=== PATIENT | female | born 1945 | race Caucasian/White ===

== ENCOUNTER 2020-07-16 10:01 | Emergency (ER) | payer MEDICARE, SELFPAY ==
[2020-07-16 10:12] VITALS: BP 157/75; PULSE 96; RESP 20; TEMP 37.3; O2SAT 96
--- NOTE | 2020-07-16 10:16 | ED.GENADULT ---
HPI - General Adult General Chief complaint: Upper Respiratory Infection Stated complaint: Sinus Time Seen by Provider: 07/16/20 10:24 Source: patient Mode of arrival: ambulatory Limitations: no limitations History of Present Illness HPI narrative: 75-year-old female patient presents to the [facility] with complaints of sinus congestion and drainage that has worsened in the past 2 to 3 days. Patient states she started taking Claritin a couple of weeks ago which did improve her symptoms however she feels that her Claritin is not working any longer and states that she has worsening symptoms whenever she lays down which causes drainage to the back of her throat and causes her to cough. Patient states she usually does not have any issues when she is sitting up and throughout the day. Patient denies any fevers, body aches or chills. Denies any ear pain, sore throat, chest pain or shortness of breath. Denies any abdominal pain, nausea, vomiting or diarrhea. Related Data Home Medications Medication Instructions Recorded Confirmed polyethylene glycol 3350 17 17 gm PO DAILY 09/26/19 gram/dose oral powder cholecalciferol (vitamin D3) 125 125 mcg PO DAILY 04/10/20 mcg (5,000 unit) capsule Allergies Allergy/AdvReac Type Severity Reaction Status Date / Time codeine Allergy Mild nausea Verified 04/10/20 08:06 hydrocodone Allergy Mild nausea Verified 04/10/20 08:06 Review of Systems Review of Systems: Narrative: CONSTITUTIONAL: Denies fever, chills, or sweats. EYES: Denies visual changes, redness, or discharge. ENT: Positive clear rhinorrhea, congestion, denies sore throat, or otalgia. CARDIOVASCULAR: Denies chest pain, palpitations, or edema. RESPIRATORY: Denies cough or dyspnea. GASTROINTESTINAL: Denies abdominal pain, nausea, vomiting, or diarrhea. GENITOURINARY: Denies dysuria or hematuria. SKIN: Denies rash or itching. MUSCULOSKELETAL: Denies back pain, joint pain, or myalgia. NEUROLOGIC: Denies headache, numbness, or weakness. PSYCHIATRIC: Denies anxiety or depression. [facility] Past Medical History Medical History Age-related osteoporosis without current pathological fracture Essential (primary) hypertension Other hyperlipidemia Primary osteoarthritis of both knees Family History Family History Sibling Family history of malignant neoplasm of breast in first degree relative, Onset Age: 80 Other Family history of coronary artery disease Social History Social History Smoking status: Never smoker Alcohol intake: current Comments At the time of my signature I agree with nursing past medical history, surgical, social, and family history. There is no relevant family history pertinent to the presenting complaint. Exam Narrative: Exam Narrative: GENERAL: Well-appearing, well-nourished, and in no acute distress. HEAD: Normocephalic, atraumatic. EYES: PERRLA and EOMI. ENT: Nares with erythema and edema noted bilaterally, patent, clear rhinorrhea, no epistaxis. Mucous membranes moist. Posterior pharynx no erythema, tonsillectomy, exudates or lesions present. Bilateral TMs are clear with no erythema or foreign bodies to the canal. NECK: Supple. No lymphadenopathy CHEST: Clear to auscultation. No respiratory distress. HEART: Regular rate and rhythm. No murmur heard. Normal peripheral pulses. ABDOMEN: Soft, nontender, nondistended, normal active bowel sounds. EXTREMITIES: Normal range of motion. No edema. SKIN: Warm, dry, no rash. NEURO: No focal deficits. Alert and oriented x3. Course Vital Signs Vital signs: Vital Signs Temperature 37.3 C 07/16/20 10:12 Pulse Rate 96 07/16/20 10:12 Respiratory Rate 07/16/20 10:12 Blood Pressure 157/75 H 07/16/20 10:12 Pulse Oximetry 96 07/16/20 10:12 Temperature 37.3 C 07/16/20 10:12
== END 2020-07-16 10:35 | disposition home or self-care (01) ==
PROVIDERS: Emergency Provider Nurse Practitioner Family
DX: J00 Acute nasopharyngitis [common cold] (principal); J01.90 Acute sinusitis, unspecified; J30.2 Other seasonal allergic rhinitis; M81.0 Age-related osteoporosis without current pathological fracture; I10 Essential (primary) hypertension; M19.90 Unspecified osteoarthritis, unspecified site; E78.5 Hyperlipidemia, unspecified
CPT/HCPCS: 99213; G0463

== ENCOUNTER → 2020-08-07 17:31 | Outpatient (CLI) | payer MEDICARE, SELFPAY ==
--- NOTE | ~2020-08-07 | MM_ITS ---
EXAMINATION: MM screening martha BI w rajeev HISTORY: Screening mammogram TECHNIQUE: Craniocaudal and mediolateral oblique 3-D tomosynthesis images were obtained and synthetic 2-D images were generated. CAD analysis was submitted and interpreted. COMPARISON: 06/05/2019, 05/13/2018, 05/11/2017 bilateral digital screening mammogram examinations BREAST PARENCHYMAL COMPOSITION: The breasts are almost entirely fatty. FINDINGS: Minimal benign calcification is noted bilaterally. There is no evidence of suspicious mass, calcification, or architectural distortion to suggest malignancy in either breast. There has been no suspicious interval change. IMPRESSION: 1. No mammographic evidence of malignancy. 2. Recommend routine screening mammography in one year. BI-RADS Category 2: Benign finding(s). Reviewed, dictated and finalized at location A.
== END ==
PROVIDERS: PCP Nurse Practitioner Family; Visit Provider Nurse Practitioner
DX: Z12.31 Encounter for screening mammogram for malignant neoplasm of breast (principal)
CPT/HCPCS: 77063; 77067

== ENCOUNTER → 2021-08-11 07:17 | Outpatient (CLI) | payer MEDICARE, SELFPAY ==
--- NOTE | ~2021-08-11 | MM_ITS ---
EXAMINATION: MM screening martha BI w rajeev HISTORY: Screening mammogram TECHNIQUE: Craniocaudal and mediolateral oblique 3-D tomosynthesis images were obtained and synthetic 2-D images were generated. CAD analysis was submitted and interpreted. COMPARISON: 08/07/2020, 06/05/2019, 05/13/2018, 05/11/2017, 03/17/2016, 03/14/2015 bilateral digital scree mitzy mammogram examinations BREAST PARENCHYMAL COMPOSITION: The breasts are almost entirely fatty. FINDINGS: Approximately 7 mm circumscribed opacity is noted in the mid to upper inner left breast pos teriorly, present on previous radiographs dating back to 03/06/2015, most likely a benign intramammary lymph node. Occasional benign calcifications. There is no evidence of suspicious mass, calcification, or architec tural distortion to suggest malignancy in either breast. There has been no suspicious interval change . IMPRESSION: 1. No mammographic evidence of malignancy. 2. Recommend routine screening mammography in one year. BI-RADS Category 2: Benign finding(s). Reviewed, dictated and finalized at location A.
== END ==
PROVIDERS: PCP Family Medicine; Visit Provider Family Medicine
DX: Z12.31 Encounter for screening mammogram for malignant neoplasm of breast (principal)
CPT/HCPCS: 77063; 77067

== ENCOUNTER → 2021-10-29 10:45 | Outpatient (CLI) | payer MEDICARE, SELFPAY ==
--- NOTE | ~2021-10-29 | DEXA_ITS ---
Bone Density Report Name: AUSTIN FARAH Age: 76 Sex: Female Ethnicity: White Date of : 1945 Indication: osteopenia; height loss; prior fracture; postmenopausal Referring Provider: Gail Elias Study: Bone densitometry was performed. Exam Date: October 29, 2021 Accession number: [id number] Bone Density: Region BMD T-score Z-score Classification AP Spine (L1-L4) 0.972 -0.7 1.9 Normal Femoral Neck (Left) 0.771 -0.7 1.5 Normal Total Hip (Left) 1.021 0.6 2.6 Normal Femoral Neck (Right) 0.777 -0.6 1.6 Normal Total Hip (Right) 0.983 0.3 2.3 Normal Total Hip Mean 1.002 0.5 2.5 Normal World Health Organization criteria for BMD impression classify patients as: Normal (T-score at or above -1.0), Osteopenia (T-score between -1.0 and -2.5), or Osteoporosis (T-score at or below -2.5). 10-year Fracture Risk: FRAX not reported because: All T-scores for Spine Total, Hip Total, Femoral Neck at or above -1.0 Previous Exams: Region Exam Age BMD T-score BMD Change BMD Change Date g/cm2 vs Baseline vs Previous AP Spine(L1-L4) 10/29/2021 76 0.972 -0.7 0.186* 0.084* 02/23/2018 72 0.888 -1.4 0.102* 0.020 03/14/2015 69 0.868 -1.6 0.082 0.034* 08/29/2012 67 0.834 -1.9 0.048 0.020 08/30/2009 64 0.814 -2.1 0.028 0.028 02/08/2006 60 0.786 -2.4 Total Hip(Left) 10/29/2021 76 1.021 0.6 0.000 -0.022 02/23/2018 72 1.043 0.8 0.022 0.016 03/14/2015 69 1.027 0.7 0.005 0.069* 08/29/2012 67 0.958 0.1 -0.064 0.072* 08/30/2009 64 0.886 -0.5 -0.135 -0.135 02/08/2006 60 1.021 0.7 Total Hip(Right) 10/29/2021 76 0.983 0.3 -0.060* -0.007 02/23/2018 72 0.990 0.4 -0.053* 0.015 03/14/2015 69 0.975 0.3 -0.068 0.040* 08/29/2012 67 0.936 -0.1 -0.108 0.064* 08/30/2009 64 0.872 -0.6 -0.172 -0.172 02/08/2006 60 1.043 0.8 *Denotes significance at 95% confidence level, LSC for AP Spine = 0.022 g/cm2, LSC for Total Hip = 0.027 g/cm2 Clinical Information Provided by Patient: Has had a low trauma fracture Has used the following medications: Vitamin D, Calcium, MTV Patient maximum height was 67 Menopause Age: 43 No regular weight bearing exercise Drinks caffeinated beverages
== END ==
PROVIDERS: PCP Family Medicine; Visit Provider Family Medicine
DX: Z78.0 Asymptomatic menopausal state (principal)
CPT/HCPCS: 77080

== ENCOUNTER 2022-10-21 10:33 | Outpatient (CLI) | payer MEDICARE, SELFPAY ==
[2022-10-21 18:41] LABS: Alanine Aminotransferase 22 U/L (6-35); Albumin Level 4.5 g/dL (3.5-5.1); Alkaline Phosphatase 87 U/L (38-126); Anion Gap 6 mmol/L (8-16); Aspartate Amino Transferase 25 U/L (14-36); Bilirubin,Total 0.5 mg/dL (0.2-1.3); Blood Urea Nitrogen 15 mg/dL (7-17); Calcium 9.7 mg/dL (8.4-10.2); Carbon Dioxide 32 mmol/L (22-30); Chloride 99 mmol/L (98-107); Cholesterol 221 mg/dL (0-200); Estimated Glomerular Filt Rate > 60; Glucose 91 mg/dL (65-110); HDL Direct 80 mg/dL; Potassium 4.2 mmol/L (3.4-5.0); Sodium 137 mmol/L (137-145); Triglycerides 128 mg/dL (<150)
[2022-10-21 18:58] LABS: LDL Cholesterol Direct 98 mg/dL
== END 2022-10-21 10:34 | disposition home or self-care (01) ==
LOC: ANHGOSHLAB 10:35
PROVIDERS: PCP Family Medicine; Visit Provider Family Medicine
DX: E78.5 Hyperlipidemia, unspecified (principal); I10 Essential (primary) hypertension
CPT/HCPCS: 36415; 80053; 80061

== ENCOUNTER → 2022-10-26 09:25 | Outpatient (CLI) | payer MEDICARE, SELFPAY ==
--- NOTE | ~2022-10-26 | MM_ITS ---
EXAMINATION: MM screening martha BI w rajeev HISTORY: Screening mammogram TECHNIQUE: Craniocaudal and mediolateral oblique 3-D tomosynthesis images were obtained and synthetic 2-D images were generated. CAD analysis was submitted and interpreted. COMPARISON: 08/11/2021, 08/07/2020, 06/05/2019 bilateral screening mammogram examinations BREAST PARENCHYMAL COMPOSITION: The breasts are almost entirely fatty. FINDINGS: There is no evidence of suspicious mass, calcification, or architectural distortion to sugg est malignancy in either breast. There has been no suspicious interval change. IMPRESSION: 1. No mammographic evidence of malignancy. 2. Recommend routine screening mammography in one year. BI-RADS Category 1: Negative Reviewed, dictated and finalized at location A. ENTARY EDUCATION TEACHER
== END ==
PROVIDERS: PCP Family Medicine; Visit Provider Family Medicine
DX: Z12.31 Encounter for screening mammogram for malignant neoplasm of breast (principal)
CPT/HCPCS: 77063; 77067

== ENCOUNTER 2022-11-05 07:12 | Outpatient (CLI) | payer MEDICARE, SELFPAY ==
--- NOTE | 2022-11-05 07:20 | ECHO_ITS ---
Patient Info Name: Arabella Rucker Age: 77 years : 1945 Gender: Female Ht: 67 in Wt: 229 lbs BSA: 2.26 m2 HR: 75 bpm BP: 156 / 98 mmHg Technical Quality: Fair Exam Date: 11/05/2022 7:31 AM Exam Location: [facility] Pulmonary Patient Status: Outpatient Admit Date: 11/05/2022 Staff Ordering Physician: Gail Elias MD Photocomposing Machine Operator: Africa Sousa RDCS Attending Provider: Gail Elias MD Exam Type: CA echo doppler color flow Study Info Indications R01.1 - Cardiac murmur, unspecified Complete two-dimensional, color flow and Doppler transthoracic echocardiogram is performed. Summary 1. Complete two-dimensional, color flow and Doppler transthoracic echocardiogram is performed. 2. Left ventricular chamber dimension is normal. 3. Left ventricular systolic function is normal, estimated at 65-70%. 4. There is mildly increased left ventricular wall thickness. 5. The left ventricular diastolic function is grade I diastolic dysfunction. 6. E/e' 11 is mildly elevated. 7. Global longitudinal strain is abnormal at -13.6%. 8. Left atrial chamber dimension is mildly enlarged. 9. There is mild aortic valve sclerosis. 10. No pulmonary hypertension, estimated pulmonary arterial systolic pressure is 24 mmHg. Left Ventricle E/e' 11 is mildly elevated. Global longitudinal strain is abnormal at -13.6%. Left ventricular chamber dimension is normal. Left ventricular systolic function is normal, estimated at 65-70%. There is mildly increased left ventricular wall thickness. The left ventricular diastolic function is grade I diastolic dysfunction. Right Ventricle Right ventricular chamber dimension is normal. Right ventricular systolic function is normal. Left Atria Left atrial chamber dimension is mildly enlarged. Right Atria Right atrial chamber dimension is normal. Aortic Valve The aortic valve is trileaflet. There is mild aortic valve sclerosis. There is no aortic valve stenosis. There is no aortic valve regurgitation. Pulmonic Valve There is no pulmonic regurgitation. Mitral Valve There is no mitral valve stenosis. There is no mitral valve regurgitation. Tricuspid Valve There is no tricuspid valve regurgitation. No pulmonary hypertension, estimated pulmonary arterial systolic pressure is 24 mmHg. Pericardium/Pleural There is no pericardial effusion. Inferior Vena Cava Normal inferior vena cava with >50% collapse upon inspiration consistent with normal right atrial pressure, 5 mmHg. Aorta The aortic root size at the sinus of Valsalva is normal. Left Ventricular Outflow Tract Name Value Normal LVOT 2D LVOT Diameter 2.0 cm LVOT Doppler LVOT Peak Gradient 6 mmHg LVOT Mean Gradient 3 mmHg LVOT VTI 24 cm LVOT VTI/AV VTI Ratio 1.0 LVOT Stroke Volume 73 ml LVOT CO 5.7 l/min LVOT CI 2.5 l/min/m2 Pulmonic Valve
== END 2022-11-05 07:13 | disposition home or self-care (01) ==
PROVIDERS: PCP Family Medicine; Visit Provider Family Medicine
DX: R01.1 Cardiac murmur, unspecified (principal); I10 Essential (primary) hypertension
CPT/HCPCS: 93306

== ENCOUNTER 2023-04-27 07:59 | Outpatient (CLI) | payer MEDICARE, SELFPAY ==
[2023-04-27 19:38] LABS: Basophils Percent Auto 1.1 % (0.2-1.2); Eosinophils Absolute Auto 0.2 K/mm3 (0-0.3); Eosinophils Percent Auto 4.9 % (0-4.4); Hematocrit 48.6 % (37.0-47.0); Hemoglobin 15.3 g/dL (12.0-15.0); Immature Granulocyte Absolute 0.02 K/mm3 (0.00-0.031); Immature Granulocyte Percent A 0.6 % (0-0.5); Lymphocytes Absolute Auto 0.99 K/mm3 (0.9-3.2); Lymphocytes Percent Auto 28.3 % (18.3-44.2); Mean Corpuscular HGB Conc 31.5 g/dl (32-36); Mean Corpuscular Hemoglobin 30.2 pg (26-34); Mean Platelet Volume 12.1 fl (7.4-10.4); Monocytes Absolute Auto 0.5 K/mm3 (0.1-0.6); Monocytes Percent Auto 14.6 % (2.6-8.5); Neutrophils Absolute Auto 1.8 K/mm3 (1.3-6.7); Neutrophils Percent Auto 50.5 % (45.5-73.1); Platelet Count Result 176 k/mm3 (150-375); Red Blood Count 5.06 M/mm3 (4.2-5.4); Red Cell Distribution Width 13.9 % (11.5-14.5); White Blood Count 3.5 K/mm3 (4.5-10.0)
[2023-04-27 20:34] LABS: Alanine Aminotransferase 25 U/L (6-35); Albumin Level 4.3 g/dL (3.5-5.1); Alkaline Phosphatase 71 U/L (38-126); Anion Gap 2 mmol/L (8-16); Aspartate Amino Transferase 30 U/L (14-36); Bilirubin,Total 0.7 mg/dL (0.2-1.3); Blood Urea Nitrogen 13 mg/dL (7-17); Calcium 9.4 mg/dL (8.4-10.2); Carbon Dioxide 34 mmol/L (22-30); Chloride 103 mmol/L (98-107); Cholesterol 185 mg/dL (0-200); Estimated Glomerular Filt Rate > 60; Glucose 84 mg/dL (65-110); HDL Direct 81 mg/dL; Potassium 4.8 mmol/L (3.4-5.0); Sodium 139 mmol/L (137-145); Triglycerides 95 mg/dL (<150)
[2023-04-27 20:45] LABS: LDL Cholesterol Direct 77 mg/dL
[2023-04-27 20:47] LABS: Vitamin D 25 Hydroxy 86.4 ng/mL
== END 2023-04-27 08:00 | disposition home or self-care (01) ==
LOC: ANHGOSHLAB 08:00
PROVIDERS: PCP Family Medicine; Visit Provider Family Medicine
DX: Z00.00 Encounter for general adult medical examination without abnormal findings (principal); E55.9 Vitamin D deficiency, unspecified; I10 Essential (primary) hypertension; E78.5 Hyperlipidemia, unspecified; E53.8 Deficiency of other specified B group vitamins
CPT/HCPCS: 36415; 80053; 80061; 82306; 82607; 84443; 85025

== ENCOUNTER 2023-08-21 12:45 | Emergency (ER) | payer MEDICARE, SELFPAY ==
--- NOTE | ~2023-08-21 | XR_ITS ---
EXAMINATION: XR shoulder RT min 2V DATE: 08/21/2023 13:47 INDICATION: Proximal lateral right humeral pain post injury 2 weeks prior TECHNIQUE: AP internally and externally rotated, AP oblique externally rotated and transscapular Y vi ews of the right shoulder were obtained. COMPARISON: None FINDINGS: Normal alignment. Subtle zigzag linear lucency extending across the scapular spine at the level of th e coracoid process consistent with nondisplaced fracture. Additional likely old fractures of the ante rior right fifth and sixth ribs. Moderate size marginal osteophytes along the posterior inferior dee oid with relatively preserved joint space consistent with mild osteoarthritis. There is mild widening of the right acromioclavicular joint space with smoothly tapered contour to the lateral head of the right clavicle which suggests sequela prior distal clavicle resection. Soft tissues are unremarkable . Visualized portion of the lungs are clear. IMPRESSION: 1. Recent-appearing nondisplaced fracture across the scapular spine. 2. Likely old fracture of the anterior right fifth and sixth ribs. 3. Widening of the right acromioclavicular joint with contour of the lateral head of the clavicle sug gesting small likely related to prior acromioplasty than acromioclavicular joint separation but would correlate with clinical history. 4. Mild right glenohumeral osteoarthritis. Reviewed, dictated and finalized at location A. IMPRESSION: 1. Recent-appearing nondisplaced fracture across the scapular spine. 2. Likely old fracture of the anterior right fifth and sixth ribs. 3. Widening of the right acromioclavicular joint with contour of the lateral he ad of the clavicle suggesting small likely related to prior acromioplasty than acromioclavicular joint separation but would correlate with clinical history. 4. Mild right glenohumeral osteoarthritis.
[2023-08-21 13:29] VITALS: BP 141/73; PULSE 83; RESP 20; TEMP 37.1; O2SAT 98
--- NOTE | 2023-08-21 13:54 | ED.UPPEXIN ---
HPI - Extremity Injury (Upper) General Chief Complaint: Extremity Injury, Upper Stated Complaint: right shoulder pain Time Seen by Provider: 08/21/23 13:30 Source: patient Mode of arrival: ambulatory Limitations: no limitations History of Present Illness HPI narrative: Arabella is an 78-year-old female patient presenting to the clinic today with complaints of right shoulder pain x2 weeks. She reports she was on a plane coming home from [facility] when some luggage fell and landed on her right shoulder. She initially had pain to the posterior shoulder/right clavicle however now the pain is over the humerus and to the anterior shoulder. She is unable to lift her arm above her head without severe pain. Has very poor range of motion due to pain. She has not been evaluated for shoulder pain since the injury. Related Data Home Medications Medication Instructions Recorded Confirmed polyethylene glycol 3350 17 17 gm PO DAILY 09/26/19 08/21/23 gram/dose oral powder (Miralax) cholecalciferol (vitamin D3) 50 50 mcg PO DAILY 04/13/22 08/21/23 mcg (2,000 unit) tablet fluticasone propionate 50 1 spray intranasal DAILY no 04/26/23 08/21/23 mcg/actuation nasal spray,suspension (Flonase Allergy Relief) Allergies Allergy/AdvReac Type Severity Reaction Status Date / Time codeine Allergy Mild nausea Verified 08/21/23 13:24 hydrocodone Allergy Mild nausea Verified 08/21/23 13:24 Review of Systems Review of Systems: Pertinent positives per HPI. Patient denies any fever, chills, rash, headache, visual changes, dizziness, cough, shortness of breath, chest pain, palpitations, nausea, vomiting, diarrhea, constipation, abdominal pain, or any urinary issues. [facility] Past Medical History Medical History Age-related osteoporosis without current pathological fracture Chronic low back pain Essential (primary) hypertension Muscle cramping Osteopenia Other hyperlipidemia Primary osteoarthritis of both knees Vitamin D deficiency Surgical History Surgical History History of surgery on left wrist (~05/30/21) Left ulna and distal radius fx, screws placed. [facility] History of surgery on upper extremity 1994 - ORIF of left humerus fracture Family History Family History Sibling Family history of malignant neoplasm of breast in first degree relative, Onset Age: 80 Sibling Leukemia Other Family history of coronary artery disease Social History Social History Smoking status: Never smoker Alcohol intake: current Alcohol use details: rarely Substance use: never Substance use type: does not use Lack of Transportation: No Lack of Food: Never True Current Housing: I Have Housing Concerned About Future Housing: No Difficulty Paying Gas/Electric Bills: No Difficulty Paying for Meds: No Currently Unemployed: No Education: High School Diploma/GED Difficulty w/ Childcare or Family Care: No Living arrangements: alone Occupation/Education: retired Gender identity (if verbalized by the patient): Female Agree to blood products: Yes Comments At the time of my signature, I reviewed and agree with the nursing past medical, surgical, social, and family history. There is no relevant family history pertinent to the patient complaint. Exam Narrative: General: Well-developed, obese, in no apparent distress Head: Normocephalic, atraumatic. Cardio: Regular rate and rhythm, s1 and s2 normal, no murmur appreciated. Resp: Clear to auscultation bilaterally, no rhonchi, rales, wheezing or rubs. Musculoskeletal: No deformity, no swelling or bruising noted, tender to palpation over the anterior and posterior shoulder joint with pain radiating into the humerus, unable to raise a
== END 2023-08-21 14:48 | disposition home or self-care (01) ==
PROVIDERS: Emergency Provider Nurse Practitioner Family; PCP Family Medicine
DX: S43.101A Unspecified dislocation of right acromioclavicular joint, initial encounter (principal); S42.101A Fracture of unspecified part of scapula, right shoulder, initial encounter for closed fracture; I10 Essential (primary) hypertension; E78.5 Hyperlipidemia, unspecified; W20.8XXA Other cause of strike by thrown, projected or falling object, initial encounter; Y92.813 Airplane as the place of occurrence of the external cause
CPT/HCPCS: 73030; 99214; A4565; G0463

== ENCOUNTER → 2023-10-28 07:03 | Outpatient (CLI) | payer MEDICARE, SELFPAY ==
--- NOTE | ~2023-10-28 | MM_ITS ---
EXAMINATION: MM screening martha BI w rajeev HISTORY: Screening mammogram, family history of breast cancer in her sister. TECHNIQUE: Craniocaudal and mediolateral oblique 3-D tomosynthesis images were obtained and synthetic 2-D images were generated. CAD analysis was submitted and interpreted. COMPARISON: 11/05/2022, 08/11/2021, 08/07/2020 BREAST PARENCHYMAL COMPOSITION: The breasts are almost entirely fatty. FINDINGS: An intramammary lymph node is noted in the upper inner quadrant of the left breast. No susp icious mass, calcification, or architectural distortion are identified in either breast to suggest ma lignancy. There has been no suspicious interval change. IMPRESSION: 1. No mammographic evidence of malignancy. 2. Recommend routine screening mammography while the patient remains in good health. BI-RADS Category 2: Benign finding(s). Reviewed, dictated and finalized at location A. ER INSPECTOR IMPRESSION: 1. No mammographic evidence of malignancy. 2. Recommend routine screening mammography while the patient remains in good he alth. BI-RADS Category 2: Benign finding(s).
== END ==
PROVIDERS: PCP Family Medicine; Visit Provider Family Medicine
DX: Z12.31 Encounter for screening mammogram for malignant neoplasm of breast (principal)
CPT/HCPCS: 77063; 77067

== ENCOUNTER 2024-01-17 01:46 | Day surgery (SDC) | payer MEDICARE, SELFPAY ==
[2024-01-07 10:30] VITALS: BMI 36.6
--- NOTE | 2024-01-14 09:57 | SUR.PREOP ---
Patient called regarding upcoming procedure. Reviewed preop instructions, appointment times, and procedure prep.
[2024-01-17 08:41] VITALS: BP 180/80; PULSE 83; RESP 16; TEMP 36.5; O2SAT 95
[2024-01-17] MEDS: LACTATED RINGERS 1,000 ML 150 ML IV CONT (08:49)
--- NOTE | 2024-01-17 09:30 | PM.HPGS ---
History of Present Illness History of Present Illness Consent: Risks, benefits, and alternatives have been discussed and questions answered. Patient agrees to proceed with procedure. Chief complaint: neoplasm screening Narrative: Arabella Rucker is a 78 year old female here for screening colonoscopy, last one 10 years ago Review of Systems Review of Systems: All systems reviewed & are unremarkable except as noted in HPI and below PMFSH Past Medical History Medical History (Updated 01/17/24 @ 09:31 by Luis Bueno MD) Age-related osteoporosis without current pathological fracture Chronic low back pain Colon cancer screening Essential (primary) hypertension Muscle cramping Osteopenia Other hyperlipidemia Primary osteoarthritis of both knees Vitamin D deficiency Surgical History Surgical History History of surgery on left wrist (~05/30/21) Left ulna and distal radius fx, screws placed. [facility] History of surgery on upper extremity 1994 - ORIF of left humerus fracture Family History Family History Sibling Family history of malignant neoplasm of breast in first degree relative, Onset Age: 80 Sibling Leukemia Other Family history of coronary artery disease Social History Social History Smoking status: Never smoker Alcohol intake: never Alcohol use details: rarely Substance use: never Substance use type: does not use Lack of Transportation: No Lack of Food: Never True Current Housing: I Have Housing Concerned About Future Housing: No Difficulty Paying Gas/Electric Bills: No Difficulty Paying for Meds: No Currently Unemployed: No Education: High School Diploma/GED Difficulty w/ Childcare or Family Care: No Living arrangements: alone Occupation/Education: retired Gender identity (if verbalized by the patient): Female Spiritual care concerns: No Agree to blood products: Yes Meds Home Medications and Allergies Home Medications Medication Instructions Recorded Confirmed Type polyethylene glycol 3350 17 17 gm PO DAILY 09/26/19 01/07/24 History gram/dose oral powder (Miralax) calcium carbonate 500 mg calcium 500 mg PO DAILY #90 tabs 10/23/19 01/07/24 Rx (1,250 mg) chewable tablet vitamin B complex (B 1 tablet PO DAILY #90 tabs 10/23/19 01/07/24 Rx Complex-Vitamin B12 tablet) cyclobenzaprine 10 mg tablet 10 mg PO QHS PRN muscle spasm #90 03/26/22 01/07/24 Rx tabs cholecalciferol (vitamin D3) 50 50 mcg PO DAILY 04/13/22 01/07/24 History mcg (2,000 unit) tablet losartan 50 mg tablet 50 mg PO DAILY #90 tabs 01/29/23 01/07/24 Rx meloxicam 15 mg tablet 15 mg PO DAILY #90 tabs 10/26/23 01/07/24 Rx amlodipine 10 mg tablet 10 mg PO DAILY #90 tabs 11/11/23 01/07/24 Rx fluticasone propionate 50 1 spray intranasal DAILY PRN no 11/11/23 01/07/24 History mcg/actuation nasal spray,suspension (Flonase Allergy Relief) rosuvastatin 10 mg tablet (Crestor) 10 mg PO QHS 11/11/23 01/07/24 History Allergies Allergy/AdvReac Type Severity Reaction Status Date / Time codeine Allergy Mild nausea Verified 01/17/24 08:40 hydrocodone Allergy Mild nausea Verified 01/17/24 08:40 Vital Signs Vital Signs - 24 hr 01/17/24 08:41 Temperature 97.7 F Pulse Rate 83 Respiratory Rate 16 Blood Pressure 180/80 H Pulse Oximetry 95 Oxygen Delivery Room Air Exam Const: General: comfortable and no acute distress HENMT: Face/Nose/Sinus: Normal nares present Eyes: General: appearance normal, both eyes and all related structures Neck: Neck: no JVD Resp: Auscultation: clear to auscultation bilaterally Cardio: Rate: regular rate Rhythm: regular rhythm GI: Inspection: non-distended GI Palp: Yes Soft to palpation Skin: General skin exam: normal color Neuro:
--- NOTE | 2024-01-17 09:32 | WPDANESEPPF ---
Anes - Initial Pre Proc Eval Procedure: Operation Date: 01/17/24 10:00 Proposed Procedures p Screening Colonoscopy - Luis Bueno MD Date/Time: 01/17/24 09:32 Surgeon: Luis Bueno MD Pre Op Diagnosis: neoplasm screening Patient Data Age: 78 Gender: F Height: 1.7 m Weight: 103.2 kg Last Vital Signs Temp 97.7 F 01/17/24 08:41 Pulse 83 01/17/24 08:41 Resp 16 01/17/24 08:41 BP 180/80 H 01/17/24 08:41 Pulse Ox 95 01/17/24 08:41 O2 Del Method Room Air 01/17/24 08:41 Allergies Allergy/AdvReac Type Severity Reaction Status Date / Time codeine Allergy Mild nausea Verified 01/17/24 08:40 hydrocodone Allergy Mild nausea Verified 01/17/24 08:40 Home Medications Medication Instructions Recorded Confirmed Type polyethylene glycol 3350 17 17 gm PO DAILY 09/26/19 01/07/24 History gram/dose oral powder (Miralax) calcium carbonate 500 mg calcium 500 mg PO DAILY #90 tabs 10/23/19 01/07/24 Rx (1,250 mg) chewable tablet vitamin B complex (B 1 tablet PO DAILY #90 tabs 10/23/19 01/07/24 Rx Complex-Vitamin B12 tablet) cyclobenzaprine 10 mg tablet 10 mg PO QHS PRN muscle spasm #90 03/26/22 01/07/24 Rx tabs cholecalciferol (vitamin D3) 50 50 mcg PO DAILY 04/13/22 01/07/24 History mcg (2,000 unit) tablet losartan 50 mg tablet 50 mg PO DAILY #90 tabs 01/29/23 01/07/24 Rx meloxicam 15 mg tablet 15 mg PO DAILY #90 tabs 10/26/23 01/07/24 Rx amlodipine 10 mg tablet 10 mg PO DAILY #90 tabs 11/11/23 01/07/24 Rx fluticasone propionate 50 1 spray intranasal DAILY PRN no 11/11/23 01/07/24 History mcg/actuation nasal spray,suspension (Flonase Allergy Relief) rosuvastatin 10 mg tablet (Crestor) 10 mg PO QHS 11/11/23 01/07/24 History Patient hx anesthesia problems: none Family hx anesthesia problems: none Results Review: All pre-operative results and documents have been reviewed as part of the pre-operative evaluation. [facility] Past Medical History Medical History (Updated 01/17/24 @ 09:31 by Luis Bueno MD) Age-related osteoporosis without current pathological fracture Chronic low back pain Colon cancer screening Essential (primary) hypertension Muscle cramping Osteopenia Other hyperlipidemia Primary osteoarthritis of both knees Vitamin D deficiency Surgical History Surgical History History of surgery on left wrist (~05/30/21) Left ulna and distal radius fx, screws placed. [facility] History of surgery on upper extremity 1994 - ORIF of left humerus fracture Family History Family History Sibling Family history of malignant neoplasm of breast in first degree relative, Onset Age: 80 Sibling Leukemia Other Family history of coronary artery disease Social History Social History Smoking status: Never smoker Alcohol intake: never Alcohol use details: rarely Substance use: never Substance use type: does not use Lack of Transportation: No Lack of Food: Never True Current Housing: I Have Housing Concerned About Future Housing: No Difficulty Paying Gas/Electric Bills: No Difficulty Paying for Meds: No Currently Unemployed: No Education: High School Diploma/GED Difficulty w/ Childcare or Family Care: No Living arrangements: alone Occupation/Education: retired Gender identity (if verbalized by the patient): Female Spiritual care concerns: No Agree to blood products: Yes Anes - Eval Final PreProcedure Day of Procedure 01/17/24 09:32 Patient weight: obese Heart: regular rate and rhythm Lungs: clear to auscultation Airway: Mallampati scale class III Neurological: alert and oriented Last oral intake: >/= 8 hours ASA classification: III Emergent: no Anesthetic plan: proceed Anesthesia type and monitoring:
[2024-01-17 09:57] VITALS: BP 142/86; PULSE 78; RESP 28; O2SAT 95
[2024-01-17 10:07] VITALS: BP 140/83; PULSE 76; RESP 26; O2SAT 96
[2024-01-17 10:17] VITALS: BP 144/87; PULSE 70; RESP 19; O2SAT 95
== END 2024-01-17 10:22 | disposition home or self-care (01) ==
PROVIDERS: PCP Family Medicine; Visit Provider Internal Medicine Gastroenterology
PROC: 0DJD8ZZ Inspection of Lower Intestinal Tract, Via Natural or Artificial Opening Endoscopic (ICD-10-PCS; CPT 45378; principal; 2024-01-17 10:00)
DX: Z12.11 Encounter for screening for malignant neoplasm of colon (principal); K64.8 Other hemorrhoids; I10 Essential (primary) hypertension; E55.9 Vitamin D deficiency, unspecified; E78.49 Other hyperlipidemia; G89.29 Other chronic pain; M54.50 Low back pain, unspecified; E66.9 Obesity, unspecified; Z68.35 Body mass index [BMI] 35.0-35.9, adult; M85.88 Other specified disorders of bone density and structure, other site; Z98.890 Other specified postprocedural states; Z80.3 Family history of malignant neoplasm of breast; Z82.49 Family history of ischemic heart disease and other diseases of the circulatory system
CPT/HCPCS: G0105; J2001; J2704; J7120

== ENCOUNTER 2024-07-13 08:16 | Outpatient (CLI) | payer MEDICARE, SELFPAY ==
[2024-07-13 14:51] LABS: Basophils Absolute Auto 0.1 K/mm3 (0.0-0.1); Basophils Percent Auto 1.6 % (0.2-1.2); Eosinophils Absolute Auto 0.4 K/mm3 (0-0.3); Eosinophils Percent Auto 8.7 % (0-4.4); Hematocrit 45.1 % (37.0-47.0); Hemoglobin 14.3 g/dL (12.0-15.0); Immature Granulocyte Absolute 0.01 K/mm3 (0.00-0.031); Immature Granulocyte Percent A 0.2 % (0-0.5); Lymphocytes Absolute Auto 1.21 K/mm3 (0.9-3.2); Lymphocytes Percent Auto 28.5 % (18.3-44.2); Mean Corpuscular HGB Conc 31.7 g/dl (32-36); Mean Corpuscular Hemoglobin 31.1 pg (26-34); Mean Platelet Volume 12.6 fl (7.4-10.4); Monocytes Absolute Auto 0.6 K/mm3 (0.1-0.6); Monocytes Percent Auto 13.9 % (2.6-8.5); Neutrophils Percent Auto 47.1 % (45.5-73.1); Platelet Count Result 199 k/mm3 (150-375); Red Cell Distribution Width 14.8 % (11.5-14.5); White Blood Count 4.3 K/mm3 (4.5-10.0)
[2024-07-13 15:21] LABS: Alanine Aminotransferase 18 U/L (6-35); Albumin Level 4.3 g/dL (3.5-5.1); Alkaline Phosphatase 71 U/L (38-126); Anion Gap 6 mmol/L (4-12); Aspartate Amino Transferase 94 U/L (14-36); Bilirubin,Total 0.6 mg/dL (0.2-1.3); Blood Urea Nitrogen 16 mg/dL (7-17); Calcium 9.3 mg/dL (8.4-10.2); Carbon Dioxide 30 mmol/L (22-30); Chloride 102 mmol/L (98-107); Cholesterol 156 mg/dL (0-200); Estimated Glomerular Filt Rate > 60; Glucose 73 mg/dL (65-110); HDL Direct 67 mg/dL; Potassium 4.5 mmol/L (3.4-5.0); Sodium 138 mmol/L (137-145); Triglycerides 115 mg/dL (<150)
[2024-07-13 15:32] LABS: LDL Cholesterol Direct 65 mg/dL
[2024-07-13 18:49] LABS: Vitamin D 25 Hydroxy 67.4 ng/mL
== END 2024-07-13 08:17 | disposition home or self-care (01) ==
LOC: ANHGOSHLAB 08:17
PROVIDERS: PCP Family Medicine; Visit Provider Family Medicine
DX: E78.5 Hyperlipidemia, unspecified (principal); I10 Essential (primary) hypertension; R73.9 Hyperglycemia, unspecified; M85.88 Other specified disorders of bone density and structure, other site; E53.8 Deficiency of other specified B group vitamins; E55.9 Vitamin D deficiency, unspecified
CPT/HCPCS: 36415; 80053; 80061; 82306; 82607; 83036; 84443; 85025

== ENCOUNTER 2024-10-30 07:05 | Outpatient (CLI) | payer MEDICARE, SELFPAY ==
--- NOTE | ~2024-10-30 | MM_ITS ---
EXAMINATION: MM screening martha BI w rajeev HISTORY: Screening mammogram, family history of breast cancer in her sister. TECHNIQUE: Craniocaudal and mediolateral oblique 3-D tomosynthesis images were obtained and synthetic 2-D images were generated. CAD analysis was submitted and interpreted. COMPARISON: 10/28/2023, 10/26/2022, 08/11/2021 BREAST PARENCHYMAL COMPOSITION:Not Dense. The breasts are almost entirely fatty FINDINGS: Stable left breast mass. No suspicious mass, calcification, or architectural distortion are identified in either breast to suggest malignancy. There has been no suspicious interval change. IMPRESSION: No mammographic evidence of malignancy. Recommend routine screening mammography in one year. BI-RADS Category 2: Benign finding(s). Reviewed, dictated and finalized at [facility]. [employer]
== END 2024-10-30 07:06 | disposition home or self-care (01) ==
PROVIDERS: PCP Family Medicine; Visit Provider Family Medicine
DX: Z12.31 Encounter for screening mammogram for malignant neoplasm of breast (principal)
CPT/HCPCS: 77063; 77067

== ENCOUNTER 2025-01-15 11:52 | Outpatient (CLI) | payer MEDICARE, SELFPAY ==
--- OUTSIDE RECORDS SUMMARY | 2025-01-15 13:15 | XMS_ITS | Data Portability ---
Author Organization [place] - [facility] [employer], Main Office Address [address] [place] [address] Care Team Providers Care Counselor Manager Name Role Phone ALYSHA SALAZAR Primary Care Provider ALYSHA SALAZAR Referring Provider [phone] Assessment Encounter Date Assessment Date Assessment LastModified by Organization Details LastModified Time 03/26/2023 03/26/2023 HPI: Patient returns. She is here for cortisone injections into both her knees. She remains on meloxicam 15 mg daily. She gets about 2 and half months good relief from the injections. She has gained a little weight since we saw her last and she knows this. She is trying to her weight down which she knows will help with her symptoms. She wished to have additional injections today. Physical exam: 77-year-old female very alert pleasant. She walks with a cane. Has a mild valgus alignment to the right knee normal alignment in left. Mild effusions in both knees. Range motion right knee is from 7-130 and on the left is 3-130 degrees. She has pbtn-gx-jpclivwa tenderness over both medial and lateral joint lines in both knees. After ChloraPrep was used on skin 20 mg Kenalog and 3 cc of 0.5% ropivacaine was injected into both knees. Risk of infection discussed. Impression: 77-year-old female has rather severe osteoarthritis the right knee and moderately severe in the left. She continued good relief from injections. Again she is going to try to work getting weight down as she knows this will improve her symptoms. She is taking a trip to [place] on August 02. We will schedule her to come in about a week prior to that for her next injections. Not available 03/26/2023 11:09:38 07/26/2023 07/26/2023 HPI: Patient returns. She is here for cortisone injection in both her knees. Last shots 4 months ago. She put off having shots at 3 month alanis to the fact she is going on vacation to [place] next week and wished to have injections prior to her trip since she will be doing a lot walking. Previous x-rays showed rather severe lateral compartment osteoarthritis in the right moderately severe in the left. Physical exam: 78-year-old female alert pleasant. She walks with a cane. She has obvious valgus alignment in both knees right greater than left. They do not fully. Mild effusions in both knees. Range motion is from 5-130 degrees bilaterally. She has mild edema both lower extremities which is chronic. No redness or noted. After ChloraPrep was used on skin 20 mg Kenalog and 3 cc of 0.5% ropivacaine was injected into both knees. Risk infection discussed. Impression: 78-year-old female who has right greater than left lateral compartment osteoarthritis. Shots continue to work well for her and she wishes to continue with doing these every 3 months. We will make an appointment in 3 months. Not available 07/26/2023 14:20:12 08/27/2023 08/27/2023 The patient had what appeared to be a nondisplaced fracture of the scapular spine right shoulder x-rays in a couple of views show a zigzag type fracture as described. She states she has no pain whatsoever and only had a couple of days of significant pain a couple of weeks after the initial injury. Clearly it looks like a fracture but could just be artifact it is hard to tell. In any event she has done very well after taking some naproxen and putting and rest for a couple of days. I have advised her she can get out of the sling she should work on gentle full range of motion. Go easy with it for now no heavy repetitive motion give it 3 or 4 weeks then she can get back into full heavy activities at 78 years of age she really does not do anything too heavy repetitive any way. I will see her back in a month if necessary she voiced understanding agrees above plan she will call for any further problems difficulties or questions. [email or web address] Not available 08/27/2023 12:12:09 10/25/2023 10/25/2023 HPI: Patient returns. She is here for cortisone injection into both of her knees. Last shots were 3 months ago. She is getting about 2 and half months good relief. She has severe lateral compartment osteoarthritis the right knee and moderately severe medial compartment arthritis in the left. She wishes to continue with injections. She is not a surgical candidate due to increased BMI. Physical exam: 78-year-old female alert pleasant. She walks with a cane. She has mild effusions both knees. Mild valgus alignment to the right knee normal alignment in the. Range of motion is from 7-125 degrees bilaterally. Mild edema in both lower extremities. ChloraPrep was used on skin 20 mg Kenalog and 3 cc of 0.5% ropivacaine was injected into both knees. Risk infection discussed. Impression: 78-year-old female who has rather severe osteoarthritis in both knees right greater than left. Shots continue give her excellent benefit. We will see her in 3 months. Not available 10/25/2023 15:42:03 02/02/2024 02/02/2024 HPI: Patient returns. She is here for cortisone injection both her knees. Last shots were 3 months ago. Gets about 2 months good. She is severe lateral osteoarthritis the right knee severe medial compartment arthritis in the left. She wished to have additional injections today. Physical exam: 78-year-old female alert. She walks with a cane. She has a mild valgus alignment that does not correct to neutral in the right knee. Normal alignment in the left. Mild effusions in both knees. Range motion of the right knee is from 12-125 and left is 7-125. She is trace edema in both lower extremities. After alcohol prep 20 mg Kenalog and 3 cc of 0.5% ropivacaine was injected into both knees. Impression: 78-year-old female who has rather severe lateral compartment osteoarthritis right knee moderately severe medial compartment arthritis in left. Shots continue give her good relief. I will see her in 3 months. Not available 02/02/2024 15:28:51 Plan of Treatment Reminders Order Date Submit Date Provider Last Modified By Organization Details Last Modified Time Details Appointments None recorded. Lab None recorded. Referral None recorded. Procedures injection/a spiration joint/bursa (PROC) 2023 024 [email or web address] In-Office Order, Internal Use Only DO Not Attach Compendium DO Not Attach Compendium, Do Not Delete/merge, [id number] 4 15:29:01 injection/a spiration joint/bursa (PROC) - in office procedure, administere d by provider 2023 024 [email or web address] In-Office Order, Internal Use Only DO Not Attach Compendium DO Not Attach Compendium, Do Not Delete/merge, [id number] 4 13:58:18 injection/a spiration joint/bursa (PROC) - in office procedure, administere d by provider 2022 023 In-Office Order, Internal Use Only DO Not Attach Compendium DO Not Attach Compendium, Do Not Delete/merge, 3 13:53:35 injection/a spiration joint/bursa (PROC) - in office procedure, administere d by provider 2022 023 [email or web address] In-Office Order, Internal Use Only DO Not Attach Compendium DO Not Attach Compendium, Do Not Delete/merge, [id number] 3 10:06:54 Surgeries None recorded. Imaging XR, knee 2022 023 [email or web address] [facility] [place], [facility] [address], [place], [address], 3 12:30:32 Medication Orders bupivacaine HCl 0.5 % (5 mg/mL) injection solution [address] [facility], [place], [address], 4 14:49:53 Kenalog 10 mg/mL suspension for injection [address] [facility], [place], [address], 4 14:49:53 Kenalog 10 mg/mL suspension for injection 2023 024 [email or web address] [facility] [address], [address] [facility], [place], [address], 4 18:35:44 ropivacaine (PF) 5 mg/mL (0.5 %) injection solution 2023 024 [email or web address] [facility] [address], [address] [facility], [place], [address], 4 18:35:44 Kenalog 10 mg/mL suspension for injection 2022 023 [email or web address] [facility] [address], [place], [address], 3 08:07:12 ropivacaine (PF) 5 mg/mL (0.5 %) injection solution 2022 023 [email or web address] [address], [place], [address], 3 08:07:12 Kenalog 10 mg/mL suspension for injection 2022 023 [email or web address] [facility] [address], [place], [address], 3 12:30:32 ropivacaine (PF) 5 mg/mL (0.5 %) injection solution 2022 023 [email or web address] [facility] [address], [place], [address], 3 12:30:32 Patient TargetsNo targets recorded. Patient InstructionsNo instructions recorded. Reason for Referral None Reported. Results Created Date Observation Date Name Description Value Unit Range Abnormal Flag Note LastModifiedBy Organization Detail LastModifiedTime 03/26/20 23 XR, knee No observ ation record ed. [facility] [place] [address], [place], [address], 03/26/2023 11:07:51 08/24/20 23 XR, shoul thu No observ ation record ed. [email or web address] Not Available 2022 16:39:32 Result Notes None recorded. Problems Name Problem SNOMED Code Status Onset Date Resolution Date Notes Provider Name and Address Organization Details Recorded Time Bilateral osteoarthr itis of knees 5745316091269 07 Active 2022 DEMARCO Bhakta, [place] [facility] [employer] 3 09:57:22 Pain of right shoulder joint 8675518574457 9100 Active 2022 TASHA Lanier, [employer] 3 11:49:25 Closed fracture of scapula 33861701 Active 2022 KENA Hinds [address] [facility] [address] [place] [address], [place], [address] , [facility] 3 12:13:22 Prepatella r bursitis 94308183 Active Not Available [facility] 3 04:53:27 Localized, primary osteoarthr itis of the pelvic region and thigh 436455286 Active Not Available [facility] 3 04:53:27 Osteoarthr itis of knee 369303544 Active Not Available [facility] 3 04:53:27 Low back pain 528488422 Active Not Available [facility] 3 04:53:27 Current tear of medial cartilage AND/OR meniscus of knee Active Not Available [facility] 3 04:53:27 Knee pain Active Not Available [facility] 3 04:53:27 Osteoarthr itis 490582053 Active Not Available [facility] 3 04:53:27 Pain of bilateral knee joints 7587213065748 04 Active 2021 Not Available [facility] 3 04:53:27 Problem Notes None recorded. Procedures Surgical History Date Name Laterality Status Provider Name and Address Organization Details Recorded Time procedure on upper arm completed Not Available [facility] 12/16/2022 04:44:20 Imaging Results Imaging Date Name Status LastModified by Organiz ation Details LastModified Time 03/26/2023 XR, knee completed [facility] [place] [address], [place], [address], 03/26/2023 11:07:51 08/24/2023 XR, shoulder completed [email or web address] Information not available 08/24/2023 16:39:32 Procedure Notes None recorded. Medical Equipment None Reported. Allergies Allergen ID Allergen Name Allergen Category Reaction Reaction Severity Criticality Documentation Date Start Date Code Code System Note Provider Name and Address Organization Details Recorded Time 8222 codeine medicatio n Not available Not available Not available 12/16/2022 2670 RxNorm Not Available [facility] 05:04:20 Medications Name Sig Start Date Stop Date Status Note LastModified by Organization Details LastModified Time losartan 50 mg tablet active Not Available Not Available No t Available cyclobenzap rine 10 mg tablet Take 1 tablet 3 times a day by oral route. 07/26 completed Not Available Not Available Not Available hydrocodone 5 mg-acetamin ophen 325 mg tablet 11/21 completed Not Available Not Available Not Available meloxicam 15 mg tablet active Not Available Not Available Not Available lisinopril 20 mg tablet 11/21 completed Not Available Not Available Not Available bupivacaine HCl 0.5 % (5 mg/mL) injection solution in office 2023 active Not Available Not Available Not Avai lable alendronate 70 mg tablet 11/21 completed Not Available Not Available Not Available sulindac 150 mg tablet 11/21 completed Not Available Not Available Not Available amlodipine 5 mg tablet active Not Available Not Available Not Available tramadol 50 mg tablet TAKE 1 TABLET BY MOUTH EVERY 6 HOURS NEEDED FOR PAIN 12/26 completed Not Available Not Available Not Available simvastatin 40 mg tablet 05/24 completed Not Available Not Available Not Available oxycodone-a cetaminophe n 5 mg-325 mg tablet TAKE 1 2 TABLETS BY MOUTH EVERY 6 HOURS NEEDED FOR PAIN. 09/26 completed Not Available Not Available Not Available Kenalog 10 mg/mL suspension for injection in office 2023 active [facility]: 0003- 0494- 20 Not Available Not Available Not Available baclofen 10 mg tablet 11/21 completed Not Available Not Available Not Available cephalexin 500 mg capsule TAKE 1 CAPSULE BY MOUTH FOUR TIMES A DAY FOR 10 DAYS 12/26 completed Not Available Not Available Not Available quinapril 20 mg tablet 11/21 completed Not Available Not Available Not Available gabapentin 100 mg capsule active Not Available Not Available Not Available fluticasone propionate 50 mcg/actuati on nasal spray,suspe nsion SHAKE AND USE ONE SPRAY INTO EACH NOSTRIL ONCE DAILY active Not Available Not Available No t Available naproxen 500 mg tablet TAKE 1 TABLET BY MOUTH TWICE DAILY NEEDED FOR PAIN FOR 7 DAYS active Not Available Not Available No t Available Pneumovax-2 3 25 mcg/0.5 mL injection syringe PHARMACIS T ADMINISTE RED IMMUNIZAT ION ADMINISTE RED AT TIME OF DISPENSIN G 11/24 completed Not Available Not Available Not Available ezetimibe 10 mg tablet 03/26 completed Not Available Not Available Not Available Tylenol 8 Hour 650 mg tablet,exte nded release Take 2 tablets every 8 hours by oral route. 2019 active Not Available Not Available Not Avai lable rosuvastati n 10 mg tablet TAKE 1 TABLET BY MOUTH EVERY DAY active Not Available Not Available No t Available magnesium 400 mg 03/28 completed Not Available Not Available Not Available calcium 2019 active Not Available Not Available Not Avai lable Vitamin D3 5000 ui 2019 active Not Available Not Available Not Avai lable Miralax 2019 active Not Available Not Available Not Avai lable Vitamin B12 2019 active Not Available Not Available Not Avai lable Crestor 12/25 completed Not Available Not Available Not Available lidocaine (PF) 10 mg/mL (1 %) injection solution In office injection administe red by the provider 03/27 completed [facility]: 0409- 4276- 17 Not Available Not Available Not Available lidocaine (PF) 5 mg/mL (0.5 %) injection solution In office injection administe red by the provider 09/25 completed Not Available Not Available Not Available GaviLyte-N 420 gram oral solution 11/21 completed Not Available Not Available Not Available ropivacaine (PF) 5 mg/mL (0.5 %) injection solution in office 2023 active Not Available Not Available Not Avai lable Fluzone High-Dose Quad 2020-21 (PF) 240 mcg/0.7 mL IM syringe PHARMACIS T ADMINISTE RED IMMUNIZAT ION ADMINISTE RED AT TIME OF DISPENSIN G active Not Available Not Available No t Available Vitals Date Recorded Body height Provider Name an d Address Organization Details Last Updated DateTime 03/26/2023 167.64 cm Devika Cabrales [facility] 03/26/2023 10:05:13 Date Recorded Body height Provider Name an d Address Organization Details Last Updated DateTime 07/26/2023 167.64 cm Devika Cabrales [facility] 07/26/2023 13:51:58 Date Recorded Body height Body mass index (BMI) Body weight Provider Name and Address Organization Details Last Updated DateTime 08/27/2023 170.18 cm 36 kg/m2 789648.25 gilmer Nievess [facility] 08/27/2023 11:48:54 Date Recorded Body height Body mass index (BMI) Body weight Provider Name and Address Organization Details Last Updated DateTime 10/25/2023 167.64 cm 37.6 kg/m2 566158.02 gilmer Cabrales [facility] [employer] 10/25/2023 14:01:17 Date Recorded Body height Provider Name an d Address Organization Details Last Updated DateTime 02/02/2024 167.64 cm Devika Cabrales [facility] 02/02/2024 14:47:40 Social History Question Answer Notes LastModified by Organizat ion Details LastModified Time Tobacco Smoking Status Never Smoker Not Available [employer] 12/16/2022 04:43:48 What Is Your Level Of Alcohol Consumption? None [id number] Information not available 12/16/2022 Sex: Unknown Functional Status None recorded. Mental Status None recorded. Family History Relationship Description Onset Age of this Age Resolved Age Notes LastModified by Organization Details LastModified Time Mother Hypertensive disorder [id number] Not available 12/16/2022 04:44:29 Mother Heart disease [id number] Not available 12/16/2022 04:44:29 Brother Hypertensive disorder [id number] Not available 12/16/2022 04:44:29 Brother Family history of malignant neoplasm [id number] Not available 12/16/2022 04:44:29 Sister Hypertensive disorder [id number] Not available 12/16/2022 04:44:29 Sister Family history of malignant neoplasm [id number] Not available 12/16/2022 04:44:29 Medical History Condition Response BLINDNESS N KIDNEY STONES N MRSA N CARPAL TUNNEL SYNDROME N LUNG DISEASE/DISORDER N HISTORY OF DRUG ABUSE N COPD N RADIATION / CHEMOTHERAPY N SPORTS INJURY N ANKLE PAIN N BLOOD DISEASES N SCHIZOPHRENIA N SHINGLES N BOWEL PROBLEMS N SHOULDER PAIN N DEPRESSION (INCLUDING POST ) N STROKE/TIA N ULCERS N KNEE PAIN N BENIGN PROSTATIC HYPERPLASIA N OBESITY N GERD/NAUSEA N ANEURYSM N URINARY/BLADDER/KIDNEY PROBLEMS N CORONARY ARTERY DISEASE (CAD) N ADDICTION CONCERNS N USE OF BLOOD THINNERS N SKIN PROBLEMS N EMPHYSEMA N MUSCLE,JOINT OR BONE PROBLEMS N DVT N STOMACH ULCERS N BLOOD CLOTS N USE OF NSAIDS N CONCUSSION OR SPINAL TRAUMA N NEUROPATHY N AIDS/HIV N FRACTURES N ELBOW PAIN N HYPERTENSION Y TOURETTE'S N ANXIETY DISORDER N Metal allergy N BLOOD TRANSFUSION N ANEMIA/BLOOD DISORDER N BIPOLAR DISORDER N BRONCHITIS N OSTEOARTHRITIS N TUBERCULOSIS N FOOT PROBLEM N HEART VALVE DISORDERS N ALLERGIES/HAYFEVER N SOFT TISSUE INJURY N INFECTIOUS DISEASE N HEART ARRHYTHMIA N INSOMNIA N RHEUMATOID ARTHRITIS N HIGH CHOLESTEROL / HYPERLIPIDEMIA N EDEMA N CHRONIC PAIN SYNDROME N CAROTID BLOCKAGE N BACK / NECK PROBLEMS N HAVE YOU BEEN HOSPITALIZED OR SEEN IN [facility] IN THE PAST YEAR ? N BURSITIS N HERNIATED DISC N DIALYSIS N FIBROMYALGIA N OSTEOPOROSIS Y ARTHRITIS Y NO SIGNIFICANT PAST MEDICAL HISTORY N PERIPHERAL NEUROPATHY N DIABETES, TYPE N HEARTBURN / REFLUX N HEPATITIS / LIVER DISEASE N GOUT N SLEEP DISORDER N ALZHEIMER'S DISEASE N HERPES N SEIZURES/EPILEPSY N HEADACHES/MIGRAINES N VASCULAR DISEASE N HIP PAIN N Blood Disorder N DIZZINESS N HEAD TRAUMA OR INJURY N HEART DISEASE/HEART PROBLEMS N MULTIPLE SCLEROSIS N CARDIAC ARRHYTHMIA N CANCER: SPECIFY N ANESTHESIA COMPLICATIONS N ATRIAL FIBRILLATION N AUTOIMMUNE DISEASE N Gynecological HistoryNo gynecological history recorded. Obstetrics History GPAL:G 0 P 0 0 0 0 Past Encounters Encounter ID Performer Location Encounter Start Date Encounter Closed Date Diagnosis/Indication Diagnosis SNOMED-CT Code Diagnosis ICD10 Code Diagnosis Note [id number] [facility] [place] [address] [place] [address] 03/28/2021 00:00:00 03/28/2021 09:21:40 [id number] [facility] [place] [address] [place] [address] 06/27/2021 00:00:00 06/27/2021 09:30:49 [id number] [facility] [place] [address] [place] [address] 09/26/2021 00:00:00 09/26/2021 09:36:11 [id number] [facility] [place] [address] [place] [address] 12/26/2021 00:00:00 12/26/2021 09:31:13 [id number] [facility] [place] [address] [place] [address] 03/27/2022 00:00:00 03/27/2022 11:46:13 [id number] [facility] [place] [address] [place] [address] 06/26/2022 00:00:00 06/26/2022 10:49:37 [id number] [facility] [place] [address] [place] [address] 09/25/2022 00:00:00 09/25/2022 11:18:03 [id number] KENA Vazquez [facility] [place] [address] [place] [address] 12/25/2022 09:52:20 12/25/2022 10:54:12 Bilateral osteoarthritis of knees 4649793476 41554 M17.0 [id number] KENA Vazquez [facility] [place] [address] [place] [address] 03/26/2023 09:57:39 03/26/2023 11:23:05 Bilateral osteoarthritis of knees 4429579591 68930 M17.0 [id number] KENA Vazquez [facility] [place] [address] [place] [address] 07/26/2023 13:41:06 07/26/2023 14:21:46 Bilateral osteoarthritis of knees 5433164660 65240 M17.0 [id number] KENA Hinds [facility] [place] [address] [place] [address] 08/27/2023 11:43:32 08/27/2023 12:17:26 Pain of right shoulder joint 8200914931 5460044 M25.511 Closed fra cture of scapula 19894532 S42.101A [id number] KENA Vazquez [facility] [place] [address] [place] [address] 10/25/2023 13:38:01 10/25/2023 15:43:43 Bilateral osteoarthritis of knees 8141598148 46522 M17.0 [id number] KENA Vazquez [facility] [place] [address] [place] [address] 02/02/2024 14:38:05 02/02/2024 15:34:25 Bilateral osteoarthritis of knees 6550243430 19843 M17.0 Health Concerns Section Related Observation LastModified by Organization Detai ls LastModified Time None Recorded Concern Status LastModified by Organization Details LastModified Time None Recorded Advance Directives Directive None Recorded Payers Encounter Date Sequence Insurance Name Policy Number Policy Alva Covered Member ID Alva Member ID Guarantor Name 03/26/2023 1 [employer] - [employer]US (MEDICARE REPLACEMENT HMO) Arabella Rucker [id number] Arabella Rucker 07/26/2023 1 [employer] (MEDICARE REPLACEMENT HMO) Arabella Rucker [id number] Arabella Wilduenschico 08/27/2023 1 [employer]US (MEDICARE REPLACEMENT HMO) Arabella Rucker [id number] Arabella Wilduenschico 10/25/2023 1 [employer]US (MEDICARE REPLACEMENT HMO) Arabella Rucker [id number] Arabella Diaz Chaim 02/02/2024 1 [employer] - [employer]US (MEDICARE REPLACEMENT HMO) Arabella Rucker [id number] Arabella Rucker Notes Date Note Type Note Provider Name and Address Organization Details Recorded Time 08/27/2023 text/html The patient is a 78-year-old female who suffered an injury to her right shoulder 3 weeks ago. She states she was on an airplane some was getting there back out of an overhead bin when it slipped fell and landed on the top of her right shoulder. She states at 1st it hurt a little bit but really was not bothering her too much she was on a 4 day trip did well then started to notice later that she was having a little more pain than 1 week ago she was having a lot of pain particularly in the superior and posterior portion of the right shoulder. She went to [facility] on 08/21/2023 had x-rays performed. X-rays demonstrate which appeared to be a zigzag lucency extending across the scapular spine at the level of the coracoid process consistent with a nondisplaced fracture. There are some old rib fractures they are healed also marginal osteophytes noted off the glenoid and some mild widening of the AC joint which is likely chronic in nature. She states she was prescribed Naprosyn took this and within 1 day had no pain whatsoever over the last week she has been in a sling but states that when she takes it off to get dressed or do anything else she has no pain at all. Denies any loss of motion states the shoulder never bruise there is never any swelling no radicular pain down the arm no numbness or tingling. Today she states she is completely pain-free but wanted to come in for an exam in follow-up since she was told that she had a fracture in her shoulder. I reviewed the x-rays in detail today with the patient agree with the above findings however I am surprised that she has no pain or tenderness around the shoulder whatsoever. She also did not have any immediate pain after the injury that was significant and really only had a couple of days of significant pain was immediately relieved by naproxen. KENA Hinds [address], [place] [address], [place], [address], [place] [facility] 08/27/2023 12:13:49 OBGyn Episode No OBEpisode recorded.
--- OUTSIDE RECORDS SUMMARY | 2025-01-15 13:15 | XMS_ITS | Clinical Summary ---
Author Organization [facility] Address [address] [place] [address] Care Team Providers Care Experimental Display Builder Name Role Phone Rosalva Elias MD Primary Care Provider Allergies Active Allergy Reactions Criticality Noted Date Comments Codeine GI Upset 05/26/2021 Medications traMADol 50 MG tabletIndicatio ns:Acute Pain < 7 Day Supply Take 1 tablet (50 mg total) by mouth every 6 (six) hours as needed for Pain. Indications: Acute Pain < 7 Day Supply 20 tablet 05/26/2021 Active losartan 50 MG tablet Take 50 mg by mouth daily. 03/22/2021 Active ezetimibe 10 MG tablet Take 10 mg by mouth daily. 03/22/2021 Active cyclobenzaprine 10 MG tablet nightly as needed for Muscle Spasms. 04/07/2021 Active meloxicam 15 MG tablet Take 15 mg by mouth daily. 05/13/2021 Active Multiple Vitamins-Minera ls (MULTIVITAMIN ADULTS OR) Take 1 tablet by mouth daily. Active vitamin B-12 1000 MCG tablet Take 1,000 mcg by mouth daily. Active magnesium oxide 250 MG tablet Take 250 mg by mouth daily. Active vitamin D3, cholecalciferol , (VITAMIN D-3) 10 MCG (400 UNIT) tablet Take 400 Units by mouth daily. Active oxyCODONE-aceta minophen 5-325 MG tabletIndicatio ns:Acute Pain < 7 Day Supply Take 1-2 tablets by mouth every 6 (six) hours as needed for Pain. Indications: Acute Pain < 7 Day Supply For Severe Pain 22 tablet 05/30/2021 Active Active Problems No known active problems Family History Medical History Relation Comments Kidney Disease Father Cancer Mother Heart Disease Mother Relation Status Comments Father Mother Social History Tobacco Use Types Packs/Day Years Used Date Smoking Tobacco: Never Smokeless Tobacco: Never Tobacco Cessation:Counseling Given: No Comments:non smoker Alcohol Use Standard Drinks/Week Comments Not Currently 0 (1 standard drink = 0.6 oz pur e alcohol) Comments No Sex and Gender Information Value Date Recorded Sex Assigned at Not on file Legal Sex Female 11:10 AM CDT Gender Identity Not on file Sexual Orientation Not on file Last Filed Vital Signs Vital Sign Reading Time Taken Comments Blood Pressure 177/98 08/04/2021 1:11 PM CDT Pulse 98 08/04/2021 1:11 PM CDT Temperature 36 C (96.8 F) 06/19/2021 1:53 PM CDT Respiratory Rate 16 05/30/2021 6:25 PM CDT Oxygen Saturation 94% 06/19/2021 1:53 PM CDT Inhaled Oxygen Concentration - - Weight 97.6 kg (215 lb 1.6 oz) 08/04/2021 1:11 P M CDT Height 172.7 cm (5' 8 ) 08/04/2021 1:11 PM CDT Body Mass Index 32.71 08/04/2021 1:11 PM CDT Plan of Treatment Health Maintenance Due Date Last Done Comments DTaP, Tdap and Td Vaccines ( 1 - Tdap) 1962 Zoster Vaccines (1 of 2) 1993 Annual Medicare Wellness Visit 2008 Dexa Scan (General) 2008 RSV Immunization or 60+ Years (1 - 1-dose 75+ series) 2018 Pneumococcal Vaccine: 65+ Years (2 of 2 - PPSV23 or PCV20) 06/30/2019 06/30/2018 COVID-19 Vaccine (3 - 2023-2 5 season) 2024 12/19/2020, 11/25/2020 Meningococcal B Vaccine Aged Out No l onger eligible based on patient's age to complete this topic Meningococcal Vaccine Aged Out No dell don eligible based on patient's age to complete this topic RSV Immunizations Under 20 Months Aged Out No longer eligible b ased on patient's age to complete this topic Medical Devices Implanted Type Area Marketing Technology Specialist Device Identifier Shelf Expiration Date Model / Serial / Lot Graft Bone Canc 15ml Cube - [id number] Implanted:Qty : 1 on 05/30/2021 by Jackson Sevilla MD at [facility] Bone Left: Radius [employer] [id number] 07/09/2024 [id number] / / [id number] Plate Synthes 2.4 Va-Lcp Vlr Dist Radius 6h Hd/4h Shaft Left - [id number] Implanted:Qty : 1 on 05/30/2021 by Jackson Sevilla MD at [facility] Plate Left: Radius SYNTHES 02.111.641 / / Screw Synthes 2.0 Locking Self Tap Stardrive Recess 14mm - [id number] Implanted:Qty : 2 on 05/30/2021 by Jackson Sevilla MD at [facility] Screw Left: Radius SYNTHES 201.884 / / Screw Synthes 2.4 Locking Stardrive 14mm - [id number] Implanted:Qty : 2 on 05/30/2021 by Jackson Sevilla MD at [facility] Screw Left: Radius SYNTHES 02.210.114 / / Screw Synthes 2.4 Cortical Self Tap 12mm - [id number] Implanted:Qty : 1 on 05/30/2021 by Jackson Sevilla MD at [facility] Screw Left: Radius SYNTHES 201.762 / / Screw Synthes 2.4 Locking Stardrive 18mm - [id number] Implanted:Qty : 4 on 05/30/2021 by Jackson Sevilla MD at [facility] Screw Left: Radius SYNTHES 02.210.118 / / Screw Synthes 2.4 Locking Stardrive 16mm - [id number] Implanted:Qty : 1 on 05/30/2021 by Jackson Sevilla MD at [facility] Screw Left: Radius SYNTHES 02.210.116 / / Screw Synthes 2.4 Locking Stardrive 22mm - [id number] Implanted:Qty : 2 on 05/30/2021 by Jackson Sevilla MD at [facility] Screw Left: Radius SYNTHES 02.210.122 / / Screw Synthes 2.0 Locking Self Tap Stardrive Recess 18mm - [id number] Implanted:Qty : 2 on 05/30/2021 by Jackson Sevilla MD at [facility] Screw Left: Radius SYNTHES 201.888 / / Screw Synthes 2.0 Cortex Stardrive 16mm - [id number] Implanted:Qty : 2 on 05/30/2021 by Jackson Sevilla MD at [facility] Screw Left: Radius SYNTHES 201.366.97 / / Screw Synthes 2.0 Locking Self Tap Stardrive Recess 16mm - [id number] Implanted:Qty : 1 on 05/30/2021 by Jackson Sevilla MD at [facility] Screw Left: Radius SYNTHES 201.886 / / 2.0 Lcp Plate Implanted:Qty : 1 on 05/30/2021 by Jackson Sevilla MD at [facility] Left: Radius [id number] 06/17/2029 242.531S / / [id number] Insurance [facility] Care Teams Experimental Display Builder Relationship Specialty Start Date End Date Rosalva Elias MD [address] [place] [address] PCP - General FAMILY PRACTICE 05/29/21
[2025-01-15 15:11] LABS: Hemoglobin A1C 5.9 % (<5.7)
== END 2025-01-15 11:53 | disposition home or self-care (01) ==
LOC: ANHGOSHLAB 11:53
PROVIDERS: PCP Family Medicine; Visit Provider Family Medicine
DX: R73.03 Prediabetes (principal); R74.01 Elevation of levels of liver transaminase levels; I10 Essential (primary) hypertension
CPT/HCPCS: 36415; 83036

== ENCOUNTER 2025-01-18 07:59 | Outpatient (CLI) | payer MEDICARE, SELFPAY ==
--- OUTSIDE RECORDS SUMMARY | 2025-01-18 08:11 | XMS_ITS | Clinical Summary ---
Author Organization [facility] Address [address] [place] [address] Care Team Providers Care Systems Management Consultant Name Role Phone Rosalva Elias MD Primary [...] this topic Medical Devices Implanted Type Area Environmental Services Coordinator Device Identifier Shelf Expiration Date Model / Serial / Lot Graft Bone Canc 15ml Cube - [id number] Implanted:Qty : 1 on 05/30/2021 by Jackson Sevilla MD at [facility] Bone Left: Radius [employer] [id number] 07/09/2024 [id number] / / [id number] Plate Synthes 2.4 Va-Lcp Vlr Dist Radius 6h Hd/4h Shaft Left - [id number] Implanted:Qty : 1 on 05/30/2021 by Jackson Sevilla MD at [facility] Plate Left: Radius SYNTHES 02.111.641 / / Screw Synthes 2.0 Locking Self Tap Stardrive Recess 14mm - [id number] Implanted:Qty : 2 on 05/30/2021 by Jackson Sevilla MD at [facility] Screw Left: Radius SYNTHES 201.884 / / Screw Synthes 2.4 Locking Stardrive 14mm - [id number] Implanted:Qty : 2 on 05/30/2021 by Jackson Sevilla MD at [facility] Screw Left: Radius SYNTHES 02.210.114 / / Screw Synthes 2.4 Cortical Self Tap 12mm - [id number] Implanted:Qty : 1 on 05/30/2021 by Jackson Sevilla MD at [facility] Screw Left: Radius SYNTHES 201.762 / / Screw Synthes 2.4 Locking Stardrive 18mm - [id number] Implanted:Qty : 4 on 05/30/2021 by Jackson Sevilla MD at [facility] Screw Left: Radius SYNTHES 02.210.118 / / Screw Synthes 2.4 Locking Stardrive 16mm - [id number] Implanted:Qty : 1 on 05/30/2021 by Jackson Sevilla MD at [facility] Screw Left: Radius SYNTHES 02.210.116 / / Screw Synthes 2.4 Locking Stardrive 22mm - [id number] Implanted:Qty : 2 on 05/30/2021 by Jackson Sevilla MD at [facility] Screw Left: Radius SYNTHES 02.210.122 / / Screw Synthes 2.0 Locking Self Tap Stardrive Recess 18mm - [id number] Implanted:Qty : 2 on 05/30/2021 by Jackson Sevilla MD at [facility] Screw Left: Radius SYNTHES 201.888 / / Screw Synthes 2.0 Cortex Stardrive 16mm - [id number] Implanted:Qty : 2 on 05/30/2021 by Jackson Sevilla MD at [facility] Screw Left: Radius SYNTHES 201.366.97 / / Screw Synthes 2.0 Locking Self Tap Stardrive Recess 16mm - [id number] Implanted:Qty : 1 on 05/30/2021 by Jackson Sevilla MD at [facility] Screw Left: Radius SYNTHES 201.886 / / 2.0 Lcp Plate Implanted:Qty : 1 on 05/30/2021 by Jackson Sevilla MD at [facility] Left: Radius [id number] 06/17/2029 242.531S / / [id number] Insurance [facility] Care Teams Systems Management Consultant Relationship Specialty Start Date End Date Rosalva Elias MD [address] [place] [address] PCP - General FAMILY PRACTICE 05/29/21
--- OUTSIDE RECORDS SUMMARY | 2025-01-18 08:11 | XMS_ITS | Data Portability ---
Author Organization [place] [facility], Main Office Address [address] [place] [address] Care Team Providers Care Embroidery Machine Operator Name Role Phone ALYSHA SALAZAR Primary Care Provider ALYSHA SALAZAR Referring Provider [phone] Assessment Encounter Date Assessment Date Assessment LastModified [...] the left is 3-130 degrees. She has ptyx-ke-mxikrtwp tenderness over both medial and lateral joint [...] symptoms. She is taking a trip to [place] on August 02. We will schedule her to come in about a week prior to that for her next injections. Not available 03/26/2023 11:09:38 07/26/2023 07/26/2023 HPI: Patient returns. She is here for cortisone injection in both her knees. Last shots 4 months ago. She put off having shots at 3 month alanis to the fact she is going on vacation to [place] next week and wished to have injections [...] DO Not Attach Compendium, Do Not Delete/merge, [id number] 4 15:29:01 injection/a spiration joint/bursa (PROC) - in office procedure, administere d by provider 2023 024 In-Office Order, Internal Use Only DO Not Attach Compendium DO Not Attach Compendium, Do Not Delete/merge, [id number] 4 13:58:18 injection/a spiration joint/bursa (PROC) - in office procedure, administere d by provider 2022 023 In-Office Order, Internal Use Only DO Not Attach Compendium DO Not Attach Compendium, Do Not Delete/merge, 3 13:53:35 injection/a spiration joint/bursa (PROC) - in office procedure, administere d by provider 2022 023 [email or web address] In-Office Order, Internal Use Only DO Not Attach Compendium DO Not Attach Compendium, Do Not Delete/merge, [id number] 3 10:06:54 Surgeries None recorded. Imaging XR, knee 2022 023 [email or web address] [facility] [place], [facility] [address], [place], [address], 3 12:30:32 Medication Orders bupivacaine HCl 0.5 % (5 mg/mL) injection solution [address] [facility], [place], [address], 4 14:49:53 Kenalog 10 mg/mL suspension for injection [address] [facility], [place], [address], 4 14:49:53 Kenalog 10 mg/mL suspension for injection 2023 024 [email or web address] [facility] [address] [facility], [place], [address], 4 18:35:44 ropivacaine (PF) 5 mg/mL (0.5 %) injection solution 2023 024 [email or web address] [facility] [address], [address] [facility], [place], [address], 4 18:35:44 Kenalog 10 mg/mL suspension for injection 2022 023 [email or web address] [address], [place], [address], 3 08:07:12 ropivacaine (PF) 5 mg/mL (0.5 %) injection solution 2022 023 [email or web address] [address], [place], [address], 3 08:07:12 Kenalog 10 mg/mL suspension for injection 2022 023 [email or web address] [address], [place], [address], 3 12:30:32 ropivacaine (PF) 5 mg/mL (0.5 %) injection solution 2022 023 [email or web address] [address], [place], [address], 3 12:30:32 Patient TargetsNo targets recorded. Patient InstructionsNo instructions recorded. Reason for Referral None Reported. Results Created Date Observation Date Name Description Value Unit Range Abnormal Flag Note LastModifiedBy Organization Detail LastModifiedTime 03/26/20 23 XR, knee No observ ation record ed. [facility] [place] [address], [place], [address], 03/26/2023 11:07:51 08/24/20 23 XR, shoul thu No observ ation record ed. [email or web address] Not Available 2022 16:39:32 Result Notes None recorded. Problems Name Problem SNOMED Code Status Onset Date Resolution Date Notes Provider Name and Address Organization Details Recorded Time Bilateral osteoarthr itis of knees 6181812610727 07 Active 2022 DEMARCO Bhakta, [place] [employer] [facility] [employer] 3 09:57:22 Pain of right shoulder joint 6294667003681 9100 Active 2022 TASHA Lanier, [employer] 3 11:49:25 Closed fracture of scapula 72461112 Active 2022 KENA Hinds [address] [facility], [place] [address], [place], [address] , [employer] 3 12:13:22 Prepatella r bursitis 87710861 Active Not Available [facility] 3 04:53:27 Localized, primary osteoarthr itis of the pelvic region and thigh 628282788 Active Not Available [facility] 3 04:53:27 Osteoarthr itis of knee 368785380 Active Not Available [facility] 3 04:53:27 Low back pain 951178583 Active Not Available [facility] 3 04:53:27 Current tear of medial cartilage AND/OR meniscus of knee Active Not Available [facility] 3 04:53:27 Knee pain Active Not Available [facility] 3 04:53:27 Osteoarthr itis 446665399 Active Not Available [facility] 3 04:53:27 Pain of bilateral knee joints 9305460616601 04 Active 2021 Not Available [facility] 3 04:53:27 Problem Notes None recorded. Procedures Surgical History Date Name Laterality Status Provider Name and Address Organization Details Recorded Time procedure on upper arm completed Not Available [facility] 12/16/2022 04:44:20 Imaging Results Imaging Date Name Status LastModified by Organiz ation Details LastModified Time 03/26/2023 XR, knee completed [facility] [place] [address], [place], [address], 03/26/2023 11:07:51 08/24/2023 XR, shoulder completed [email or web address] Information not available 08/24/2023 16:39:32 Procedure Notes None recorded. Medical Equipment None Reported. Allergies Allergen ID Allergen Name Allergen Category Reaction Reaction Severity Criticality Documentation Date Start Date Code Code System Note Provider Name and Address Organization Details Recorded Time 8222 codeine medicatio n Not available Not available Not available 12/16/2022 2670 RxNorm Not Available [facility] 05:04:20 Medications Name Sig Start Date Stop [...] suspension for injection in office 2023 active [facility]: 0003- 0494- 20 Not Available Not Available [...] administe red by the provider 03/27 completed [facility]: 0409- 4276- 17 Not Available Not Available [...] Updated DateTime 03/26/2023 167.64 cm Devika Cabrales [facility] [employer] [facility] 03/26/2023 10:05:13 Date Recorded Body height Provider Name an d Address Organization Details Last Updated DateTime 07/26/2023 167.64 cm Devika Cabrales [facility] [employer] [facility] 07/26/2023 13:51:58 Date Recorded Body height Body mass index (BMI) Body weight Provider Name and Address Organization Details Last Updated DateTime 08/27/2023 170.18 cm 36 kg/m2 424878.25 [facility]ilmer Nievess [facility] [employer] [employer] [facility] 08/27/2023 11:48:54 Date Recorded Body height Body mass index (BMI) Body weight Provider Name and Address Organization Details Last Updated DateTime 10/25/2023 167.64 cm 37.6 kg/m2 564644.02 gilmer Cabrales [facility] [employer] [facility] 10/25/2023 14:01:17 Date Recorded Body height Provider Name an d Address Organization Details Last Updated DateTime 02/02/2024 167.64 cm Devika Cabrales [facility] [employer] [facility] 02/02/2024 14:47:40 Social History Question Answer Notes LastModified by Organizat ion Details LastModified Time Tobacco Smoking Status Never Smoker Not Available [employer] 12/16/2022 04:43:48 What Is Your Level Of Alcohol Consumption? None [id number] Information not available 12/16/2022 Sex: Unknown Functional Status None recorded. Mental Status None recorded. Family History Relationship Description Onset Age of this Age Resolved Age Notes LastModified by Organization Details LastModified Time Mother Hypertensive disorder [id number] Not available 12/16/2022 04:44:29 Mother Heart disease [id number] [id number] Not available 12/16/2022 04:44:29 Brother Hypertensive disorder [id number].060 [id number] Not available 12/16/2022 04:44:29 Brother Family history of malignant neoplasm [id number] [id number] Not available 12/16/2022 04:44:29 Sister Hypertensive disorder MIGRATION.815 [id number] Not available 12/16/2022 04:44:29 Sister Family history of malignant neoplasm MIGRATION.929 [id number] Not available 12/16/2022 04:44:29 Medical History Condition Response BLINDNESS N KIDNEY STONES N MRSA N CARPAL TUNNEL SYNDROME N LUNG DISEASE/DISORDER N HISTORY OF DRUG ABUSE N RADIATION / CHEMOTHERAPY N COPD N SPORTS INJURY N ANKLE PAIN N BLOOD DISEASES N SCHIZOPHRENIA N SHINGLES N BOWEL PROBLEMS N SHOULDER PAIN N DEPRESSION (INCLUDING POST ) N STROKE/TIA N KNEE PAIN N ULCERS N BENIGN PROSTATIC HYPERPLASIA N OBESITY N [...] HAVE YOU BEEN HOSPITALIZED OR SEEN IN [facility] IN THE PAST YEAR ? N BURSITIS [...] SNOMED-CT Code Diagnosis ICD10 Code Diagnosis Note [id number] [facility] [place] [address] [place] [address] 03/28/2021 00:00:00 03/28/2021 09:21:40 [id number] [facility] [place] [address] [place] [address] 06/27/2021 00:00:00 06/27/2021 09:30:49 [id number] [facility] [place] [address] [place] [address] 09/26/2021 00:00:00 09/26/2021 09:36:11 [id number] [facility] [place] [address] [place] [address] 12/26/2021 00:00:00 12/26/2021 09:31:13 [id number] [facility] [place] [address] [place] [address] 03/27/2022 00:00:00 03/27/2022 11:46:13 [id number] [facility] [place] [address] [place] [address] 06/26/2022 00:00:00 06/26/2022 10:49:37 [id number] [facility] [place] [address] [place] [address] 09/25/2022 00:00:00 09/25/2022 11:18:03 [id number] KENA Vazquez [facility] [place] [address] [place] [address] 12/25/2022 09:52:20 12/25/2022 10:54:12 Bilateral osteoarthritis of knees 1958456413 71162 M17.0 [id number] KENA Vazquez [facility] [place] [address] [place] [address] 03/26/2023 09:57:39 03/26/2023 11:23:05 Bilateral osteoarthritis of knees 9825874814 09591 M17.0 [id number] KENA Vazquez [facility] [place] [address] [place] [address] 07/26/2023 13:41:06 07/26/2023 14:21:46 Bilateral osteoarthritis of knees 3307975894 02953 M17.0 [id number] KENA Hinds [facility] [place] [address] [place] [address] 08/27/2023 11:43:32 08/27/2023 12:17:26 Pain of right shoulder joint 7480265595 8608839 M25.511 Closed fra cture of scapula 82514473 S42.101A [id number] KENA Vazquez [facility] [place] [address] [place] [address] 10/25/2023 13:38:01 10/25/2023 15:43:43 Bilateral osteoarthritis of knees 8050993081 70786 M17.0 [id number] KENA Vazquez [facility] [place] [address] [place] [address] 02/02/2024 14:38:05 02/02/2024 15:34:25 Bilateral osteoarthritis of knees 2214125634 79299 M17.0 Health Concerns Section Related Observation LastModified by Organization Detai ls LastModified Time None Recorded Concern Status LastModified by Organization Details LastModified Time None Recorded Advance Directives Directive None Recorded Payers Encounter Date Sequence Insurance Name Policy Number Policy Alva Covered Member ID Alva Member ID Guarantor Name 03/26/2023 1 [employer] - G[employer]US (MEDICARE REPLACEMENT HMO) Arabella Rucker [id number] Arabella Rucker 07/26/2023 1 [employer] - [employer]US (MEDICARE REPLACEMENT HMO) Arabella Rucker [id number] Arabella Wilduenschico 08/27/2023 1 [employer] - GOLD PLUS (MEDICARE REPLACEMENT HMO) Arabella Rucker [id number] Arabella Wilduenschico 10/25/2023 1 [employer] - GOLD PLUS (MEDICARE REPLACEMENT HMO) Arabella Rucker [id number] Arabella Diaz Chaim 02/02/2024 1 [employer] - GOLD PLUS (MEDICARE REPLACEMENT HMO) Arabella Rucker [id number] Arabella Rucker Notes Date Note Type Note [...] of the right shoulder. She went to [facility] on 08/21/2023 had x-rays performed. X-rays [...] by naproxen. KENA Hinds [address], [place] [address], [place], [address], [place] [facility] 08/27/2023 12:13:49 OBGyn Episode No OBEpisode recorded.
[2025-01-18 12:15] LABS: Alanine Aminotransferase 20 U/L (6-35); Albumin Level 4.1 g/dL (3.5-5.1); Alkaline Phosphatase 76 U/L (38-126); Anion Gap 7 mmol/L (4-12); Aspartate Amino Transferase 55 U/L (14-36); Bilirubin,Total 0.7 mg/dL (0.2-1.3); Blood Urea Nitrogen 17 mg/dL (7-17); Calcium 8.9 mg/dL (8.4-10.2); Carbon Dioxide 28 mmol/L (22-30); Chloride 104 mmol/L (98-107); Estimated Glomerular Filt Rate > 60; Glucose 94 mg/dL (65-110); Potassium 4.3 mmol/L (3.4-5.0); Sodium 139 mmol/L (137-145)
== END 2025-01-18 08:00 | disposition home or self-care (01) ==
LOC: ANHGOSHLAB 08:01
PROVIDERS: PCP Family Medicine; Visit Provider Family Medicine
DX: R74.01 Elevation of levels of liver transaminase levels (principal); I10 Essential (primary) hypertension
CPT/HCPCS: 36415; 80053

== ENCOUNTER 2025-07-24 07:51 | Outpatient (CLI) | payer MEDICARE, SELFPAY ==
--- OUTSIDE RECORDS SUMMARY | 2025-07-24 07:56 | XMS_ITS | Clinical Summary ---
Author Organization [facility] Address [address] [place] [address] Care Team Providers Care Tool Adjuster Name Role Phone Rosalva Elias MD Primary [...] P M CDT Height 172.7 cm (5' 8) 08/04/2021 1:11 PM CDT Body Mass Index 32.71 08/04/2021 1:11 PM CDT Plan of Treatment Health Maintenance Due Date Last Done Comments DTaP, Tdap and Td Vaccines ( 1 - Tdap) 1962 Zoster Vaccines (1 of 2) 1993 Annual Medicare Wellness Visit 2008 Dexa Scan (General) 2008 RSV Immunization or 60+ Years (1 - 1-dose 75+ series) 2018 Pneumococcal Vaccine: 50+ Years (2 of 2 - PPSV23) 06/30/2019 06/30/2018 COVID-19 Vaccine (3 - 2024-2 6 season) 2025 12/19/2020, 11/25/2020 Influenza Adult (#1) 2025 07/10/2020 Meningococcal B Vaccine Aged Out No l onger eligible based on patient's age to complete this topic Meningococcal Vaccine Aged Out No dell don eligible based on patient's age to complete this topic RSV Immunizations Under 20 Months Aged Out No longer eligible b ased on patient's age to complete this topic Medical Devices Implanted Type Area Supervisor Residential Device Identifier Shelf Expiration Date Model / Serial / Lot Graft Bone Canc 15ml Cube - [id number] Implanted:Qty : 1 on 05/30/2021 by Jackson Sevilla MD at [facility] Bone Left: Radius [employer] [id number] 07/09/2024 [id number] / / [id number] Plate Synthes 2.4 Va-Lcp Vlr Dist Radius 6h Hd/4h Shaft Left - [id number] Implanted:Qty : 1 on 05/30/2021 by Jackson Sevilla MD at [facility] Plate Left: Radius SYNTHES 02.111.641 / / Screw Synthes 2.0 Locking Self Tap Stardrive Recess 14mm - [id number] Implanted:Qty : 2 on 05/30/2021 by Jackson Sevilla MD at [facility] Screw Left: Radius SYNTHES 201.884 / / Screw Synthes 2.4 Locking Stardrive 14mm - [id number] Implanted:Qty : 2 on 05/30/2021 by Jackson Sevilla MD at [facility] Screw Left: Radius SYNTHES .210.114 / / Screw Synthes 2.4 Cortical Self Tap 12mm - [id number] Implanted:Qty : 1 on 05/30/2021 by Jackson Sevilla MD at [facility] Screw Left: Radius SYNTHES 201.762 / / Screw Synthes 2.4 Locking Stardrive 18mm - [id number] Implanted:Qty : 4 on 05/30/2021 by Jackson Sevilla MD at [facility] Screw Left: Radius SYN[employer]ES .210.118 / / Screw Synthes 2.4 Locking Stardrive 16mm - [id number] Implanted:Qty : 1 on 05/30/2021 by Jackson Sevilla MD at [facility] Screw Left: Radius [employer]ES 02.210.116 / / Screw Synthes 2.4 Locking Stardrive 22mm - [id number] Implanted:Qty : 2 on 05/30/2021 by Jackson Sevilla MD at [facility] Screw Left: Radius SYN[employer]ES 02.210.122 / / Screw Synthes 2.0 Locking Self Tap Stardrive Recess 18mm - [id number] Implanted:Qty : 2 on 05/30/2021 by Jackson Sevilla MD at [facility] Screw Left: Radius [employer] 201.888 / / Screw Synthes 2.0 Cortex Stardrive 16mm - [id number] Implanted:Qty : 2 on 05/30/2021 by Jackson Sevilla MD at [facility] Screw Left: Radius SYN[employer]ES 201.366.97 / / Screw Synthes 2.0 Locking Self Tap Stardrive Recess 16mm - [id number] Implanted:Qty : 1 on 05/30/2021 by Jackson Sevilla MD at [facility] Screw Left: Radius SYNTHES 201.886 / / 2.0 Lcp Plate Implanted:Qty : 1 on 05/30/2021 by Jackson Sevilla MD at [facility] Left: Radius [id number] 06/17/2029 242.531S / / [id number] Insurance MEDICARE Care Teams Tool Adjuster Relationship Specialty Start Date End Date Rosalva Elias MD [address] [place] [id number] PCP - General FAMILY PRACTICE 05/29/21
[2025-07-24 13:01] LABS: Hematocrit 45.8 % (37.0-47.0); Hemoglobin 14.3 g/dL (12.0-15.0); Immature Granulocyte Percent A 0.4 % (0-0.5); Lymphocytes Absolute Auto 1.01 K/mm3 (0.9-3.2); Mean Corpuscular HGB Conc 31.2 g/dl (32-36); Mean Corpuscular Hemoglobin 29.7 pg (26-34); Mean Corpuscular Volume 95.2 fl (80-100); Nucleated Red Blood Cells Absolute Auto 0.000 K/mm3 (0.0-0.012); Nucleated Red Blood Cells Perc 0.0 % (0.0-0.2); Platelet Count Result 176 k/mm3 (150-375); Red Blood Count 4.81 M/mm3 (4.2-5.4); White Blood Count 5.2 K/mm3 (4.5-10.0)
[2025-07-24 13:18] LABS: Alanine Aminotransferase 20 U/L (6-35); Albumin Level 4.2 g/dL (3.5-5.1); Alkaline Phosphatase 89 U/L (38-126); Anion Gap 7 mmol/L (4-12); Aspartate Amino Transferase 41 U/L (14-36); Bilirubin,Total 0.5 mg/dL (0.2-1.3); Blood Urea Nitrogen 18 mg/dL (7-17); Calcium 9.4 mg/dL (8.4-10.2); Carbon Dioxide 29 mmol/L (22-30); Chloride 103 mmol/L (98-107); Cholesterol 173 mg/dL (0-200); Estimated Glomerular Filt Rate > 60; Glucose 90 mg/dL (65-110); HDL Direct 55 mg/dL; Magnesium 2.6 mg/dL (1.6-2.3); Potassium 4.6 mmol/L (3.4-5.0); Sodium 139 mmol/L (137-145); Total Protein 7.6 g/dL (6.3-8.2); Triglycerides 105 mg/dL (<150)
[2025-07-24 13:39] LABS: MALB Creatinine Ratio 5.8 mg/g (0-30)
[2025-07-24 13:49] LABS: Thyroid Stimulating Hormone Reflex 2.640 uIU/mL (0.465-4.68)
[2025-07-24 14:11] LABS: Vitamin B12 776.0 pg/mL (239-931)
[2025-07-24 14:26] LABS: Hemoglobin A1C 6.1 % (<5.7)
== END 2025-07-24 07:52 | disposition home or self-care (01) ==
PROVIDERS: PCP Nurse Practitioner Family; Visit Provider Nurse Practitioner Family
DX: R74.01 Elevation of levels of liver transaminase levels (principal); E78.49 Other hyperlipidemia; R73.03 Prediabetes; I10 Essential (primary) hypertension; E55.9 Vitamin D deficiency, unspecified
CPT/HCPCS: 36415; 80053; 80061; 82043; 82306; 82607; 83036; 83735; 84443; 85025